=== PATIENT | male | born 1960 | race Caucasian/White ===

== ENCOUNTER 2022-01-14 11:42 | Emergency (ER) | payer OTHER ==
[~2022-01-14] VITALS: Ht 177.8 cm; Wt 102.1 kg
--- NOTE | 2022-01-14 11:45 | NUR ---
Patient seen [email or web address]
[2022-01-14] MEDS ORDERED: TDAP DIPH,PERTUSS,TET VAC/PF 0.5 ML DISP.SYRIN IM ONE ×2 (12:45→12:49)
[2022-01-14] MEDS ORDERED: NEOMY/BACITRA/POLYMYXIN B OINT UD PACKET TP ONE ×2 (12:53→13:00)
--- NOTE | 2022-01-14 12:57 | NUR ---
Patient discharged to home in stable condition. Written and verbal after care instructions given. Patient verbalizes understanding of instructions. Stressed follow up or return to ER for worsening s/s.
[2022-01-14 12:58] VITALS: BP 143/87
--- NOTE | 2022-01-14 12:59 | NUR ---
DCD instrucitons given to pt, by rn. Farnsworth
[2022-01-15] MEDS ORDERED: CYCL10TA9 PO (17:22)
[2022-01-15] MEDS ORDERED: ONDA4TAB5 PO (17:22)
== END 2022-01-14 12:59 | disposition home or self-care (01) ==
LOC: ER 11:42
DX: S06.9X9A Unspecified intracranial injury with loss of consciousness of unspecified duration, initial encounter (principal); S01.01XA Laceration without foreign body of scalp, initial encounter; R40.2362 Coma scale, best motor response, obeys commands, at arrival to emergency department; R40.2142 Coma scale, eyes open, spontaneous, at arrival to emergency department; R40.2252 Coma scale, best verbal response, oriented, at arrival to emergency department; Y09 Assault by unspecified means; Y92.59 Other trade areas as the place of occurrence of the external cause
CPT/HCPCS: 70450; 90715; A4663

== ENCOUNTER 2022-01-15 15:28 | Emergency (ER) | payer OTHER ==
[~2022-01-15] VITALS: Ht 177.8 cm; Wt 101.6 kg
[2022-01-15] MEDS ORDERED: CYCLOBENZAPRINE HCL 10 MG TABLET PO ONE (17:15)
[2022-01-15] MEDS ORDERED: ONDANSETRON ODT 4 MG TAB.RAPDIS SL ONE (17:15)
[2022-01-15] MEDS ORDERED: CYCL10TA9 PO (17:22)
[2022-01-15] MEDS ORDERED: ONDA4TAB5 PO (17:22)
[2022-01-15] MEDS ORDERED: ONDANSETRON ODT 4 MG TAB.RAPDIS ONE (17:27)
[2022-01-15] MEDS ORDERED: CYCLOBENZAPRINE HCL 10 MG TABLET ONE (17:27)
== END 2022-01-15 17:37 | disposition home or self-care (01) ==
LOC: ER 15:28
DX: S16.1XXA Strain of muscle, fascia and tendon at neck level, initial encounter (principal); Y09 Assault by unspecified means; Y92.89 Other specified places as the place of occurrence of the external cause; S06.0X9D Concussion with loss of consciousness of unspecified duration, subsequent encounter; R59.0 Localized enlarged lymph nodes; M50.322 Other cervical disc degeneration at C5-C6 level; M48.02 Spinal stenosis, cervical region
CPT/HCPCS: 72125; A4663; Q0162